=== PATIENT | female | born 1945 | race Caucasian/White ===

== ENCOUNTER 2017-08-29 15:23 | Emergency (ER) | payer MEDICARE, OTHER ==
[2017-08-29 16:08] LABS: INR-International Normal Ratio 1.1; PTT 27.5 SEC (22.9-36.1)
[2017-08-29 16:17] LABS: ALT (SGPT) 14 U/L (8-55); AST (SGOT) 22 U/L (5-34); Albumin 3.8 g/dL (3.4-4.8); Alkaline Phosphatase 71 U/L (40-150); Anion Gap 16 mmol/L (10-20); BUN (Urea Nitrogen) 14 mg/dL (9.8-20.1); Bilirubin, Total 1.2 mg/dL (0.2-1.2); Calc. Creatinine Clearance 0 mL/min (70-130); Calcium 9.4 mg/dL (7.8-10.44); Carbon Dioxide 23 mmol/L (23-31); Chloride 107 mmol/L (98-107); Estimated GFR-MDRD 57; Globulin 2.7 g/dL (2.4-3.5); Glucose 91 mg/dL (80-115); Potassium 4.4 mmol/L (3.5-5.1); Protein, Total 6.5 g/dL (6.0-8.3); Sodium 142 mmol/L (136-145)
[2017-08-29 16:21] LABS: CKMB 0.8 ng/mL (0-6.6)
--- NOTE | 2017-08-29 16:29 | RAD ---
2 VIEWS CHEST: Date: 08/29/17 COMPARISON: None. HISTORY: Chest pain. FINDINGS: Two views of the chest show normal sized cardiomediastinal silhouette. There is no evidence of consol idation, mass, or pleural effusion. Degenerative changes are seen in the spine. IMPRESSION: No evidence of acute cardiopulmonary disease. POS: [facility]
[2017-08-29 16:30] LABS: White Blood Cell (WBC) Count 4.9 thou/uL (4.8-10.8)
[2017-08-29 16:32] LABS: Hemoglobin 13.4 g/dL (12.0-16.0); Mean Corpuscular HGB CONC 31.9 g/dL (32.0-36.0); Mean Corpuscular Hemoglobin 29.6 pg (27.0-31.0); Mean Corpuscular Volume 92.8 fL (81.0-99.0); Platelet Count 153 thou/uL (130-400); RBC Distribution Width 14.5 % (11.5-14.5); Red Blood Cell (RBC) Count 4.52 mill/uL (4.20-5.40)
[2017-08-29 16:33] LABS: Band 14 % (5-11); Lymphocytes 9 % (21-51); MDiff Complete? YES; Manual Diff?? YES; Mean Platelet Volume 7.9 fL (7.4-10.4); Monocytes 1 % (0-10); Neutrophil 73 % (42-75); PLT Morphology Comment Appears Adequate; RBC Morphology N; Reactive Lymphocytes 3 % (0-10)
[2017-08-29] MEDS ORDERED: Acetaminophen 500 MG TAB ONE (18:34)
== END 2017-08-29 20:30 | disposition home or self-care (01) ==
LOC: MADERS 15:23
DX: R07.9 Chest pain, unspecified (principal)
CPT/HCPCS: 36415; 71046; 80053; 82553; 83880; 84484; 85025; 85610; 85730; 93005